=== PATIENT | female | born 1995 | race Caucasian/White ===

== ENCOUNTER 2020-10-02 01:20 | Emergency (ER) | payer OTHER, SELFPAY ==
[2020-10-02 01:24] VITALS: BP 114/70; PULSE 98; RESP 20; TEMP 36.4; O2SAT 100; BMI 22.3
[2020-10-02 02:00] VITALS: BP 112/70; PULSE 82; RESP 18; O2SAT 97
--- NOTE | 2020-10-02 05:20 | ED.GENADULT ---
HPI - General Adult General Chief complaint: Overdose Stated complaint: OVERDOSE Time Seen by Provider: 10/02/20 05:19 Source: patient Mode of arrival: EMS Limitations: no limitations History of Present Illness HPI narrative: 25-year-old female who presented to the emergency department for evaluation of opiate overdose. The patient states that she drank 5 shots of alcohol this evening. She then snorted a oxycodone pill. She then has no memory of what happened next. Apparently the screw driver operator of the vehicle was pulled over by the police. The patient was noted to be unresponsive and the police administered 3 doses of intranasal Narcan and called an ambulance. The patient woke up and became responsive. The patient states that she does drink alcohol and very rarely uses opiates. She states that her friend also use the same opiate intranasally. The patient currently has no complaints. She denies headache, shortness of breath, nausea, vomiting, numbness or weakness. Related Data Allergies Allergy/AdvReac Type Severity Reaction Status Date / Time No Known Allergies Allergy Verified 10/02/20 01:29 Review of Systems Review of Systems: Yes all other systems are reviewed and are negative Neurologic: Reports Abnormal speech present [facility] Past Medical History [facility] Narrative: The patient has no medical problems. She does smoke cigarettes. She does drink alcohol and did drink 5 shots of alcohol today, she states that she very rarely uses opiates. Medical History (Updated 10/02/20 @ 05:29 by Hakeem Cassidy MD) No known health problems Social History Social History Advance Directives: No Physical Exam Vital Signs: Vital Signs: Last Vital Signs Temp 97.6 F 10/02/20 01:24 Pulse 82 10/02/20 02:00 Resp 18 10/02/20 02:00 BP 112/70 10/02/20 02:00 Pulse Ox 97 10/02/20 02:00 Body Mass Index 22.3 Const: General: cooperative and healthy appearing Orientation/consciousness: oriented to person and oriented to place Limitations: no limitations HENMT: Head: Yes normal to inspection, Yes normocephalic and Yes atraumatic Ears: external ears normal General nose exam: Normal external nose present Face and sinus: Yes normal facial exam Mouth: Normal oral and palatal mucosa present Throat: Yes posterior oropharynx normal Eyes: Periorbital: periorbital findings normal Eyelids: Yes eyelids normal Conjunctivae: conjunctivae normal Sclerae: sclerae normal Corneas: corneas normal Pupils: Equal, round and reactive pupils present Direct Ophthalmoscopy: normal light reflex Neck: Neck: Yes full ROM, Yes no lymphadenopathy, Yes no meningeal signs, Yes trachea midline and Yes supple Chest: Chest palpation & inspection: normal inspection of the chest and normal palpation of entire chest wall Resp: Effort & Inspection: normal respiratory effort and able to speak in complete sentences Auscultation: clear to auscultation bilaterally Cardio: Rate: regular rate Rhythm: regular rhythm Heart sounds: S1 normal heart sound present, S2 normal heart sound present and no murmurs GI: Inspection: Yes normal to inspection Palpation (GI): Soft to palpation, nontender, no guarding, not rigid and No hepatosplenomegaly present : General: Yes no CVA tenderness Back/Spine/Pelvis: Back: no CVA tenderness Cervical Spine: normal cervical lordosis Thoracic/Lumbar Spine: thoracic and lumbar spine normal to inspection Skin: Lesions: no lesions Rashes: no rashes Wounds: no wounds Neuro: General: oriented to person, oriented to place and no meningeal signs Cranial nerves: Yes Equal, round and reactive pupils present Cognition (Neuro): normal cognition Speech: Abnormal speech present Motor exam (neuro): 5/5 motor strength present throughout Extrem: General: Yes normal to inspection and Yes full ROM Psych: Appearance: well kempt Mental Status: mental status grossly normal Speech and movement: Normal speech and movement present Affect: normal affect Attitude: cooperative Thought process: Normal thought process present Thought content: Normal thought content present Course Course Course Narrative: 25-year-old female who presented to the emergency department for evaluation of narcotic overdose which was reversed in the field by police with 3 doses of intranasal Narcan. The patient's examination was unremarkable. She has been observed in the emergency department for approximately 4 hours and appears well with no recurrence of her altered mental status. I did offer the patient crisis counseling but she refused at this time and wants to go home. The patient will be discharged home with instructions to follow-up with PCP. Discharge Plan Discharge Clinical Impression: Opiate or related narcotic overdose Qualifiers: Encounter type: initial encounter Injury intent: accidental or unintentional Qualified Code(s): T40.601A - Poisoning by unspecified narcotics, accidental (unintentional), initial encounter Patient Disposition: Home, Self-Care Instructions: Narcotic Use Disorder (ED)
--- NOTE | 2020-10-02 05:24 | PC.NURSE ---
PLAN TO DISCHARGE HOME. PATIENT ABLE TO FIND SAFE RIDE HOME. AMBULATED WITH STEADY GAIT TO BATHROOM AND BACK WITHOUT ISSUE.
== END 2020-10-02 05:53 | disposition home or self-care (01) ==
PROVIDERS: Emergency Provider Emergency Medicine Emergency Medical Services
DX: T40.2X1A Poisoning by other opioids, accidental (unintentional), initial encounter (principal); R40.4 Transient alteration of awareness; Y92.810 Car as the place of occurrence of the external cause
CPT/HCPCS: 99283; 99284